=== PATIENT | male | born 1965 | race Caucasian/White ===

== ENCOUNTER 2021-04-26 17:23 | Inpatient (IN) ==
[2021-04-26 19:39] LABS: Bilirubin,Urine Negative (Negative); Blood,Urine Negative (Negative); Clarity,Urine Clear (Clear); Color,Urine Light-Yellow (Yellow); Glucose,Urine (UA) Normal (Normal); Ketones,Urine 10 mg/dL (Negative); Leukocyte Esterase,Urine Negative (Negative); Nitrite,Urine Negative (Negative); PH,Urine 7.5 pH Units (5.0-8.0); Protein,Urine Trace mg/dL (Neg-Trace); Specific Gravity,Urine 1.023 (1.010-1.025); Urobilinogen,Urine Normal (Normal)
[2021-04-26 19:49] LABS: Amphetamine Screen,Urine Negative ng/mL (Cutoff=1000); Barbiturate Screen,Urine Negative ng/mL (Cutoff=200); Benzodiazepines Screen,Urine Negative ng/mL (Cutoff=200); Cannabinoid Screen,Urine Negative ng/mL (Cutoff = 50); Cocaine Screen,Urine Negative ng/mL (Cutoff= 300); Opiate Screen,Urine Negative ng/mL (Cutoff=300); Phencyclidine Screen,Urine Negative ng/mL (Cutoff=25)
[2021-04-26 20:11] LABS: Basophils % 0.5 %; Eosinophils % 0.5 %; Hemoglobin 15.4 g/dL (12.9-16.9); Lymphocytes % 30.8 %; Mean Corpuscular HGB Conc 34.2 g/dL (31.6-35.5); Mean Corpuscular Hemoglobin 30.7 pg (28.0-33.3); Mean Corpuscular Volume 89.8 fL (83.0-100.0); Mean Platelet Volume 10.5 fL (9.4-12.4); Monocytes # 0.5 K/mcL (0.0-1.3); Monocytes % 7.8 %; Neutrophils # 3.9 K/mcL (1.6-8.9); Platelet Count 296 K/mcL (140-400); Red Blood Count 5.01 M/mcL (4.19-5.50); Red Cell Distribution Width 13.1 % (11.5-14.5); Segmented Neutrophils % 60.4 %; White Blood Count 6.4 K/mcL (4.3-11.1)
[2021-04-26 20:21] LABS: Acetaminophen < 10 mcg/mL (10-20); BUN/Creatinine Ratio 15 (6-26); Blood Urea Nitrogen 12 mg/dL (6-20); Calcium 9.3 mg/dL (8.6-10.3); Carbon Dioxide 29 mEq/L (23-29); Chloride 103 mEq/L (98-107); Ethanol < 10 mg/dL (Less than 10); Glucose 106 mg/dL (70-105); Osmolality,Calculated 286 (280-300); Potassium 4.5 mEq/L (3.5-5.1); Salicylate < 2.5 mg/dL (15.0-30.0); Sodium 138 mEq/L (136-145); eGFR For African Americans > 60 (> 60); eGFR For Non-African Americans > 60 (> 60)
[2021-04-26 23:32] LABS: Influenza A PCR Negative (Negative); Influenza B PCR Negative (Negative); Resp. Syncytial Virus PCR Negative (Negative)
[2021-04-26 23:33] LABS: SARS-CoV-2 by PCR (In House) Negative (Negative)
[2021-04-27] MEDS ORDERED: *HR* LORazepam 1 MG TABLET PO PRN (00:04)
[2021-04-27] MEDS ORDERED: Haloperidol Lactate 5 MG/ML VIAL IM PRN (00:04)
[2021-04-27] MEDS ORDERED: Acetaminophen 325 MG TABLET PO PRN (00:04)
[2021-04-27] MEDS ORDERED: *HR* LORazepam 2 MG/ML VIAL IM PRN (00:04)
[2021-04-27] MEDS ORDERED: haloperidoL 5 MG TABLET PO PRN (00:04)
[2021-04-27] MEDS ORDERED: Ibuprofen 400 MG TABLET PO PRN (00:04)
[2021-04-27] MEDS ORDERED: QUEtiapine Fumarate 25 MG TABLET PO PRN (00:04)
[2021-04-27] MEDS ORDERED: Mag Hydrox/Al Hydrox/Simeth 30 ML UDC PO PRN (08:48)
[2021-04-27] MEDS ORDERED: MOM Conc 10 ML UD.LIQ PO PRN (08:48)
[2021-04-27] MEDS: QUEtiapine Fumarate 25 MG TABLET PO SCH ×2 (10:36→20:25)
[2021-04-27] MEDS: hydrOXYzine pamoate 25 MG CAPSULE PO PRN (20:25)
[2021-04-28] MEDS: QUEtiapine Fumarate 25 MG TABLET PO SCH (09:01)
[2021-04-28] MEDS: hydrOXYzine pamoate 25 MG CAPSULE PO PRN (20:18)
[2021-04-28] MEDS ORDERED: QUEtiapine Fumarate 25 MG TABLET PO SCH (21:00)
[2021-04-29] MEDS ORDERED: QUEtiapine Fumarate 25 MG TABLET PO SCH (09:00)
[2021-04-29] MEDS: QUEtiapine Fumarate 100 MG TABLET PO SCH (21:35)
[2021-04-29] MEDS: hydrOXYzine pamoate 25 MG CAPSULE PO PRN (21:35)
[2021-04-30] MEDS: QUEtiapine Fumarate 25 MG TABLET PO SCH (09:13)
[2021-04-30] MEDS: QUEtiapine Fumarate 100 MG TABLET PO SCH (20:48)
[2021-04-30] MEDS: hydrOXYzine pamoate 25 MG CAPSULE PO PRN (20:48)
[2021-05-01] MEDS: QUEtiapine Fumarate 25 MG TABLET PO SCH (09:11)
[2021-05-01 20:25] VITALS: TEMP 98.8
[2021-05-01] MEDS: QUEtiapine Fumarate 100 MG TABLET PO SCH (20:54)
[2021-05-02] MEDS: QUEtiapine Fumarate 25 MG TABLET PO SCH (09:49)
[2021-05-02 10:08] VITALS: BP 117/71; PULSE 80; O2SAT 97
== END 2021-05-02 20:33 | disposition home or self-care (01) | DRG 885 ==
LOC: EMEROOARM 17:23 → 1ANU 04-27 00:23
PROVIDERS: ADMIT Psychiatry & Neurology Psychiatry; ATTEND Psychiatry & Neurology Psychiatry